=== PATIENT | female | born 1985 | race African-American/Black ===

== ENCOUNTER 2021-03-11 11:50 | Emergency (ER) | payer MEDICAID, OTHER ==
[~2021-03-11] VITALS: Ht 157.5 cm; Wt 57.0 kg
[2021-03-11] MEDS ORDERED: SODIUM CHLORIDE 0.9% 1,000 ML IV ONE (12:15)
[2021-03-11 12:33] LABS: HEMATOCRIT. 38.7 % (36.0-48.0); HEMOGLOBIN. 13.1 g/dL (12.0-16.0); MEAN CORPUSCULAR HEMOGLOBIN 26.7 pg (28.0-32.0); MEAN CORPUSCULAR VOLUME 78.7 fL (81.0-99.0); MEAN PLATELET VOLUME 8.3 fl (7.4-10.4); PLATELET 283 x1000/uL (130-400); RED BLOOD CELL COUNT 4.92 mill/uL (4.2-5.4); RED CELL DISTRIBUTION WIDTH 12.8 % (11.6-14.6)
[2021-03-11 12:36] LABS: CLARITY URINE CLEAR (CLEAR); COLOR URINE YELLOW (YELLOW); KETONES URINE NEGATIVE (NEGATIVE); LEUKOCYTE ESTERASE URINE NEGATIVE (NEGATIVE); NITRITE URINE NEGATIVE (NEGATIVE); OCCULT BLOOD URINE TRACE (NEGATIVE); PH URINE >=9.0 (4.5-8.0); PROTEIN URINE TRACE (NEGATIVE); SPECIFIC GRAVITY URINE 1.017 (1.005-1.030); UROBILINOGEN URINE 0.2 E.U./dL (0.2-1.0)
[2021-03-11 12:41] LABS: CHLORIDE 107 mEq/L (98-107)
[2021-03-11 12:45] LABS: ETHANOL BLOOD < 10 mg/dL
[2021-03-11 12:46] LABS: HCG SCREEN NEGATIVE
[2021-03-11 12:47] LABS: PROTHROMBIN TIME 10.3 sec (9.6-11.0)
[2021-03-11 12:51] LABS: CANNABINOID URINE SCREEN NEGATIVE (NEGATIVE); PHENCYCLIDINE URINE SCREEN NEGATIVE (NEGATIVE)
[2021-03-11 12:53] LABS: METHADONE URINE SCREEN NEGATIVE (NEGATIVE)
[2021-03-11 12:54] LABS: *AMPHETAMINES SCREEN URINE NEGATIVE (NEGATIVE); *BARBITURATES SCREEN URINE NEGATIVE (NEGATIVE)
[2021-03-11 12:55] LABS: *COCAINE SCREEN URINE NEGATIVE (NEGATIVE)
[2021-03-11 12:57] LABS: OPIATES URINE SCREEN NEGATIVE (NEGATIVE)
[2021-03-11 13:03] LABS: PLATELET ESTIMATE NORMAL
[2021-03-11 13:04] LABS: *BENZODIAZEPINES SCREEN URINE NEGATIVE (NEGATIVE)
[2021-03-11] MEDS ORDERED: POTASSIUM CHLORIDE 20MEQ TABLET SR PO NR (14:00)
[2021-03-11] MEDS ORDERED: IOHEXOL-300 100 ML BOTTLE ONE (14:27)
[2021-03-11] MEDS ORDERED: PIPERACILLIN/TAZ 3.375G PREMIX 50 ML IV ONE (14:45)
[2021-03-11] MEDS ORDERED: SODIUM CHLORIDE 0.9% 1000ML BAG (SEPSIS BOLUS) IV ONE (14:45)
[2021-03-11 18:06] VITALS: BP 116/76
== END 2021-03-11 18:32 | disposition short-term general hospital (02) ==
LOC: ER 11:50 → CANBEDREQ 17:50 → ER 18:32
DX: R65.20 Severe sepsis without septic shock (principal); R10.0 Acute abdomen; E87.6 Hypokalemia; M62.08 Separation of muscle (nontraumatic), other site; N83.11 Corpus luteum cyst of right ovary
CPT/HCPCS: 36415; 70450; 71045; 74177; 76830; 76856; 80053; 80305; 80320; 81003; 81025; 83605; 83690; 84484; 84703; 85025; 85610; 87040; 87086; 93005; 96374; 99291; J2543; J7030; Q9967; Z7610; G0480